=== PATIENT | male | born 1990 | race Caucasian/White ===

== ENCOUNTER 2020-09-29 08:15 | Emergency (ER) | payer OTHER ==
[2020-09-29 08:32] VITALS: PULSE 91; TEMP 99.1; BMI 32.5
[2020-09-29] MEDS ORDERED: HEPATITIS B IMMUNE GLOBULIN 5 ML VIAL IM ONE (08:37)
[2020-09-29] MEDS ORDERED: HEPATITIS B VIR VAC (ENGERIX) 10 MCG/0.5 ML VIAL (PF) IM ONE (08:37)
[2020-09-29] MEDS ORDERED: HIV POST EXPOSURE PROPHYLAXIS KIT NR ONE (08:40)
[2020-09-29 09:06] VITALS: BP 133/90
[2020-09-29] MEDS ORDERED: HEPATITIS B VIRUS VACCINE-PF 20 MCG/1ML PRE-FILLED SYRINGE IM ONE (09:09)
[2020-09-29 09:15] LABS: BASO % 2.3 % (0-2.0); HEMATOCRIT 48.8 % (35.4-49); HEMOGLOBIN 16.2 GM/dl (11.7-16.9); MCH 25.8 pg (25.7-33.7); MCHC 33.2 g/dl (32.0-35.9); MEAN CELL VOLUME 77.6 fl (80-96); MEAN PLT VOLUME 10.7 fl (7.5-11.1); MONO % 8.4 % (3.8-10.2); NEUT % 53.3 % (42.8-82.8); PLATELET COUNT 110 K/MM3 (134-434); RDW 12.5 % (11.9-15.9); WHITE BLOOD COUNT 8.2 K/mm3 (4.0-10.8)
[2020-09-29 09:23] LABS: ALBUMIN 4.5 g/dl (3.4-5.0); BILIRUBIN,TOTAL 0.4 mg/dl (0.2-1); CALCIUM 9.5 mg/dl (8.5-10); CREATININE 0.9 mg/dl (0.55-1.3); PHOSPHOROUS 3.9 mg/dl (2.5-4.9); POTASSIUM 3.7 mmol/L (3.5-5.1)
[2020-09-29] MEDS ORDERED: HIV POST EXPOSURE PROPHYLAXIS KIT PO ONE (09:30)
[2020-09-29 11:33] LABS: HIV INTERPRETATION NEGATIVE (NEGATIVE)
== END 2020-09-29 10:38 | disposition home or self-care (01) ==
LOC: FER 08:15
PROC: 3E023GC Introduction of Other Therapeutic Substance into Muscle, Percutaneous Approach (ICD-10-PCS; principal; 2020-09-29)
DX: Z77.21 Contact with and (suspected) exposure to potentially hazardous body fluids (principal)
CPT/HCPCS: 36415; 80053; 82465; 82977; 83615; 84100; 84478; 84550; 85025; 86317; 86704; 86706; 86803; 87340; 87389; 99284-25

== ENCOUNTER 2021-12-19 04:21 | Emergency (ER) | payer OTHER ==
[2021-12-19 04:29] VITALS: BP 124/93; PULSE 98; TEMP 98.9; BMI 32.2
[2021-12-19] MEDS ORDERED: IBUPROFEN 600 MG TABLET (FP) PO ONE ×2 (04:31→04:40)
== END 2021-12-19 04:44 | disposition home or self-care (01) ==
LOC: FER 04:21
DX: S63.502A Unspecified sprain of left wrist, initial encounter (principal); Y99.8 Other external cause status
CPT/HCPCS: 99283-25

== ENCOUNTER 2022-04-29 03:22 | Emergency (ER) | payer OTHER ==
[2022-04-29 03:32] VITALS: TEMP 99; BMI 34.0
[2022-04-29] MEDS ORDERED: DIPHTH,PERTUSS(ACELL),TET 0.5 ML DISP.SYRIN IM ONE ×2 (03:47→03:49)
[2022-04-29 04:03] VITALS: BP 145/108; PULSE 104
== END 2022-04-29 04:05 | disposition home or self-care (01) ==
LOC: FER 03:22
PROC: 3E0234Z Introduction of Serum, Toxoid and Vaccine into Muscle, Percutaneous Approach (ICD-10-PCS; principal; 2022-04-29)
DX: S05.02XA Injury of conjunctiva and corneal abrasion without foreign body, left eye, initial encounter (principal); S50.812A Abrasion of left forearm, initial encounter
CPT/HCPCS: 73070-TC-LT-FY; 73110-TC-LT-FY; 90715; 99284-25

== ENCOUNTER 2022-10-27 13:31 | Emergency (ER) | payer BC, OTHER ==
[2022-10-27 13:39] VITALS: BP 136/90; PULSE 87; RESP 18; TEMP 98.1; BMI 34.7
[2022-10-27] MEDS ORDERED: ACETAMINOPHEN 500 MG TABLET (FP) PO ONE (14:18)
[2022-10-27] MEDS ORDERED: IBUPROFEN 600 MG TABLET (FP) PO ONE ×2 (14:18→14:27)
[2022-10-27] MEDS ORDERED: ACETAMINOPHEN 500 MG TABLET (FP) ONE (14:27)
== END 2022-10-27 16:18 | disposition home or self-care (01) ==
LOC: JERFT 13:31
DX: S99.911A Unspecified injury of right ankle, initial encounter (principal); X50.9XXA Other and unspecified overexertion or strenuous movements or postures, initial encounter
CPT/HCPCS: 73610-TC-RT-FY; 73630-TC-RT-FY; 99283-25

== ENCOUNTER 2023-02-28 03:33 | Observation (INO) | payer BC, OTHER ==
[2023-02-28 03:38] VITALS: BMI 29.5
[2023-02-28] MEDS ORDERED: SODIUM CHLORIDE 1,000 ML IV STA (03:49)
[2023-02-28] MEDS ORDERED: PANTOPRAZOLE SODIUM 40 MG VIAL IVPUSH ONE (03:50)
[2023-02-28] MEDS ORDERED: PANTOPRAZOLE SODIUM 40 MG VIAL ONE ×2 (04:05→11:21)
[2023-02-28 04:16] LABS: BASO % 0.4 % (0-2.0); EOS % 1.1 % (0-4.5); HEMATOCRIT 41.1 % (35.4-49); HEMOGLOBIN 13.3 GM/dL (11.7-16.9); MCH 24.4 pg (25.7-33.7); MCHC 32.4 g/dl (32.0-35.9); MEAN CELL VOLUME 75.5 fl (80-96); MEAN PLT VOLUME 11.2 fl (7.5-11.1); MONO % 6.8 % (3.8-10.2); NEUT % 56.7 % (42.8-82.8); PLATELET COUNT 123 10^3/uL (134-434); RBC 5.44 M/mm3 (4.00-5.60); RDW 14.2 % (11.9-15.9); WHITE BLOOD COUNT 11.2 K/mm3 (4.0-10.0)
[2023-02-28 04:36] LABS: POTASSIUM 3.8 mmol/L (3.5-5.1)
[2023-02-28 04:37] LABS: CALCIUM 8.6 mg/dL (8.5-10.1)
[2023-02-28 04:38] LABS: ALBUMIN 3.4 g/dl (3.4-5.0)
[2023-02-28 04:42] LABS: CREATININE 0.9 mg/dL (0.55-1.3)
[2023-02-28 04:43] LABS: BILIRUBIN,TOTAL 0.3 mg/dL (0.2-1)
[2023-02-28 04:44] LABS: TOT PROT 6.1 g/dl (6.4-8.2)
[2023-02-28 05:38] LABS: ACTIVATED PTT 26.1 SECONDS (25.2-36.5); INR 1.07 (0.83-1.09); PROTHROMBIN TIME (PATIENT) 12.4 SEC (9.7-13.0)
[2023-02-28] MEDS ORDERED: ONDANSETRON 4 MG/2 ML VIAL IVPUSH ONE (07:50)
[2023-02-28] MEDS ORDERED: ONDANSETRON 4 MG/2 ML VIAL ONE (07:52)
[2023-02-28 08:37] LABS: BASO % 0.4 % (0-2.0); EOS % 0.3 % (0-4.5); HEMATOCRIT 37.8 % (35.4-49); HEMOGLOBIN 12.4 GM/dL (11.7-16.9); LYMPH % 23.2 % (8-40); MCH 24.8 pg (25.7-33.7); MCHC 32.8 g/dl (32.0-35.9); MEAN CELL VOLUME 75.6 fl (80-96); MEAN PLT VOLUME 11.2 fl (7.5-11.1); MONO % 5.3 % (3.8-10.2); NEUT % 70.8 % (42.8-82.8); PLATELET COUNT 139 10^3/uL (134-434); WHITE BLOOD COUNT 11.1 K/mm3 (4.0-10.0)
[2023-02-28] MEDS ORDERED: PANTOPRAZOLE SODIUM 40 MG VIAL IVPUSH SCH (10:00)
[2023-02-28] MEDS: SODIUM CHLORIDE 1,000 ML IV SCH (11:34)
[2023-02-28 12:49] LABS: BASO % 0.4 % (0-2.0); EOS % 0.4 % (0-4.5); HEMATOCRIT 38.3 % (35.4-49); HEMOGLOBIN 12.7 GM/dL (11.7-16.9); LYMPH % 23.7 % (8-40); MCH 25.1 pg (25.7-33.7); MCHC 33.2 g/dl (32.0-35.9); MEAN CELL VOLUME 75.6 fl (80-96); MEAN PLT VOLUME 11.8 fl (7.5-11.1); MONO % 6.2 % (3.8-10.2); NEUT % 69.3 % (42.8-82.8); PLATELET COUNT 124 10^3/uL (134-434); RBC 5.07 M/mm3 (4.00-5.60); RDW 13.7 % (11.9-15.9); WHITE BLOOD COUNT 9.5 K/mm3 (4.0-10.0)
[2023-02-28 13:13] LABS: POTASSIUM 4.2 mmol/L (3.5-5.1)
[2023-02-28 13:19] LABS: CALCIUM 8.8 mg/dL (8.5-10.1)
[2023-02-28 13:21] LABS: ALBUMIN 3.5 g/dl (3.4-5.0); BLOOD UREA NITROGEN 21.7 mg/dL (7-18)
[2023-02-28 13:23] LABS: CREATININE 0.7 mg/dL (0.55-1.3)
[2023-02-28 13:25] LABS: BILIRUBIN,TOTAL 0.9 mg/dL (0.2-1); TOT PROT 6.2 g/dl (6.4-8.2)
[2023-02-28] MEDS ORDERED: BISACODYL 5 MG TABLET.DR (FP) PO ONE (16:00)
[2023-02-28] MEDS ORDERED: PEG 3350/NA SULF BICARB CL/KCL 4000 ML SOLN.RECON PO ONE (17:00)
[2023-02-28 21:28] LABS: BASO % 0.4 % (0-2.0); EOS % 0.6 % (0-4.5); HEMATOCRIT 34.3 % (35.4-49); HEMOGLOBIN 11.3 GM/dL (11.7-16.9); MCH 24.6 pg (25.7-33.7); MCHC 33.1 g/dl (32.0-35.9); MEAN CELL VOLUME 74.4 fl (80-96); MEAN PLT VOLUME 10.7 fl (7.5-11.1); MONO % 9.1 % (3.8-10.2); NEUT % 71.9 % (42.8-82.8); PLATELET COUNT 109 10^3/uL (134-434); RBC 4.61 M/mm3 (4.00-5.60); RDW 13.8 % (11.9-15.9); WHITE BLOOD COUNT 9.3 K/mm3 (4.0-10.0)
[2023-03-01] MEDS ORDERED: INSULIN SLIDING SCALE (NOVOLOG) 1 VIAL SQ ONE (06:34)
[2023-03-01 07:47] LABS: BASO % 0.4 % (0-2.0); EOS % 1.4 % (0-4.5); HEMATOCRIT 30.9 % (35.4-49); HEMOGLOBIN 10.4 GM/dL (11.7-16.9); LYMPH % 30.7 % (8-40); MCH 25.2 pg (25.7-33.7); MCHC 33.7 g/dl (32.0-35.9); MEAN CELL VOLUME 74.8 fl (80-96); MEAN PLT VOLUME 11.6 fl (7.5-11.1); MONO % 8.5 % (3.8-10.2); PLATELET COUNT 100 10^3/uL (134-434); RBC 4.13 M/mm3 (4.00-5.60); RDW 13.6 % (11.9-15.9); WHITE BLOOD COUNT 6.5 K/mm3 (4.0-10.0)
[2023-03-01] MEDS: SODIUM CHLORIDE 1,000 ML IV SCH (08:04)
[2023-03-01 08:10] LABS: POTASSIUM 3.7 mmol/L (3.5-5.1)
[2023-03-01 08:18] LABS: BLOOD UREA NITROGEN 13.5 mg/dL (7-18); CALCIUM 8.3 mg/dL (8.5-10.1); CREATININE 0.7 mg/dL (0.55-1.3)
[2023-03-01 08:20] LABS: BILIRUBIN,TOTAL 0.6 mg/dL (0.2-1); TOT PROT 5.2 g/dl (6.4-8.2)
[2023-03-01] MEDS: PANTOPRAZOLE 40 MG TABLET PO SCH (09:11)
[2023-03-01 15:33] LABS: BASO % 0.8 % (0-2.0); EOS % 1.1 % (0-4.5); HEMATOCRIT 31.5 % (35.4-49); HEMOGLOBIN 10.6 GM/dL (11.7-16.9); LYMPH % 34.6 % (8-40); MCH 25.1 pg (25.7-33.7); MCHC 33.5 g/dl (32.0-35.9); MEAN CELL VOLUME 75.2 fl (80-96); MEAN PLT VOLUME 11.1 fl (7.5-11.1); NEUT % 56.5 % (42.8-82.8); PLATELET COUNT 110 10^3/uL (134-434); RDW 13.7 % (11.9-15.9); WHITE BLOOD COUNT 6.1 K/mm3 (4.0-10.0)
[2023-03-02 06:57] LABS: BASO % 0.7 % (0-2.0); EOS % 1.2 % (0-4.5); HEMATOCRIT 30.5 % (35.4-49); HEMOGLOBIN 10.4 GM/dL (11.7-16.9); LYMPH % 33.1 % (8-40); MCH 25.5 pg (25.7-33.7); MEAN CELL VOLUME 74.9 fl (80-96); MEAN PLT VOLUME 11.2 fl (7.5-11.1); MONO % 6.5 % (3.8-10.2); NEUT % 58.5 % (42.8-82.8); PLATELET COUNT 105 10^3/uL (134-434); RBC 4.06 M/mm3 (4.00-5.60); RDW 13.5 % (11.9-15.9); WHITE BLOOD COUNT 6.7 K/mm3 (4.0-10.0)
[2023-03-02] MEDS: PANTOPRAZOLE 40 MG TABLET PO SCH (09:02)
[2023-03-03] MEDS: PANTOPRAZOLE 40 MG TABLET PO SCH (09:08)
[2023-03-03 09:32] VITALS: BP 128/80; PULSE 90; RESP 18; TEMP 98.4
== END 2023-03-03 13:27 | disposition home or self-care (01) ==
LOC: JER 03:33 → JERBED 08:31 → J4S 14:04
PROVIDERS: ADMIT Family Medicine; ATTEND Family Medicine
PROC: 3E033GC Introduction of Other Therapeutic Substance into Peripheral Vein, Percutaneous Approach (ICD-10-PCS; 2023-02-28)
PROC: 3E0337Z Introduction of Electrolytic and Water Balance Substance into Peripheral Vein, Percutaneous Approach (ICD-10-PCS; 2023-02-28)
PROC: 0DBH8ZX Excision of Cecum, Via Natural or Artificial Opening Endoscopic, Diagnostic (ICD-10-PCS; principal; 2023-02-28 11:30)
DX: K62.5 Hemorrhage of anus and rectum (principal); D64.9 Anemia, unspecified; R55 Syncope and collapse; K76.0 Fatty (change of) liver, not elsewhere classified; D69.6 Thrombocytopenia, unspecified; M62.81 Muscle weakness (generalized)
CPT/HCPCS: 36415; 74174-TC; 74177-TC; 80053; 82272; 82607; 82728; 82746; 83540; 83550; 83605; 85025; 85610; 85730; 86704; 86803; 86850; 86900; 86901; 87340; 87517; 88305-TC; 88342-TC; 93005; 93010; 97116-GP; 97161-GP; 99285-25; C9803-CS; G0378; Q9967; U0003; U0005

== ENCOUNTER 2023-05-03 05:35 | Day surgery (SDC) | payer BC, OTHER ==
[2023-04-29 13:43] VITALS: BMI 33.2
[2023-05-03 11:17] VITALS: TEMP 97.7
[2023-05-03 11:43] VITALS: RESP 18
[2023-05-03 11:45] VITALS: BP 117/76; PULSE 84
== END 2023-05-03 11:45 | disposition home or self-care (01) ==
LOC: JASU-ENDO 05:35
PROVIDERS: ATTEND Student in an Organized Health Care Education/Training Program
PROC: 0DB78ZX Excision of Stomach, Pylorus, Via Natural or Artificial Opening Endoscopic, Diagnostic (ICD-10-PCS; 2023-05-03)
PROC: 0DB68ZX Excision of Stomach, Via Natural or Artificial Opening Endoscopic, Diagnostic (ICD-10-PCS; principal; 2023-05-03 10:30)
DX: K29.50 Unspecified chronic gastritis without bleeding (principal)
CPT/HCPCS: 88305-TC; 88342-TC

== ENCOUNTER 2023-09-19 18:31 | Emergency (ER) | payer OTHER ==
[2023-09-19 18:56] VITALS: BP 150/99; PULSE 94; RESP 18; TEMP 98.5; BMI 33.5
[2023-09-19] MEDS ORDERED: IBUPROFEN 600 MG TABLET (FP) PO ONE ×2 (19:24→19:28)
== END 2023-09-19 19:30 | disposition home or self-care (01) ==
LOC: FER 18:31
DX: M79.641 Pain in right hand (principal); M79.642 Pain in left hand; S60.415A Abrasion of left ring finger, initial encounter; S66.911A Strain of unspecified muscle, fascia and tendon at wrist and hand level, right hand, initial encounter; X58.XXXA Exposure to other specified factors, initial encounter
CPT/HCPCS: 99282-25

== ENCOUNTER 2024-01-14 23:42 | Emergency (ER) | payer OTHER ==
[2024-01-14 23:53] VITALS: RESP 18; BMI 33.5
[2024-01-15 00:12] VITALS: BP 139/103; PULSE 110; TEMP 98.9
== END 2024-01-15 00:46 | disposition home or self-care (01) ==
LOC: FER 23:42
DX: S63.630A Sprain of interphalangeal joint of right index finger, initial encounter (principal); W23.0XXA Caught, crushed, jammed, or pinched between moving objects, initial encounter; Y93.89 Activity, other specified; Y92.009 Unspecified place in unspecified non-institutional (private) residence as the place of occurrence of the external cause
CPT/HCPCS: 99282-25

== ENCOUNTER 2024-06-21 21:22 | Emergency (ER) | payer OTHER ==
[2024-06-21 21:38] VITALS: BP 134/93; PULSE 100; RESP 16; TEMP 98.4; BMI 32.5
[2024-06-21] MEDS ORDERED: ACETAMINOPHEN 500 MG TABLET (FP) ONE (23:01)
[2024-06-21] MEDS: ACETAMINOPHEN 500 MG TABLET (FP) PO ONE (23:12)
== END 2024-06-21 22:28 | disposition home or self-care (01) ==
LOC: FER 21:22
DX: S63.501A Unspecified sprain of right wrist, initial encounter (principal); Y35.811A Legal intervention involving manhandling, law enforcement official injured, initial encounter
CPT/HCPCS: 99283-25